=== PATIENT | female | born 1985 | race Caucasian/White ===

== ENCOUNTER 2022-05-03 15:36 | Emergency (ER) | payer BC ==
[~2022-05-03] VITALS: Ht 170.2 cm; Wt 74.8 kg
[2022-05-03 16:01] VITALS: BP_SYST 138
[2022-05-03] MEDS: IBUPROFEN 600 MG TABLET PO ONE (20:48)
[2022-05-03 21:14] VITALS: BP_SYST 138
== END 2022-05-03 21:14 | disposition home or self-care (01) ==
LOC: SED 15:36
DX: R51.9 Headache, unspecified (principal); R07.89 Other chest pain; M54.50 Low back pain, unspecified; Z20.822 Contact with and (suspected) exposure to COVID-19
CPT/HCPCS: 36415; 71045; 93005; 99285

== ENCOUNTER 2023-10-04 11:40 | Emergency (ER) | payer BC, MEDICAID ==
[~2023-10-04] VITALS: Ht 160 cm; Wt 61.2 kg
[2023-10-04 11:44] VITALS: BP_SYST 120; PULSE 108; RESP 18; TEMP 98.3; O2SAT 98
[2023-10-04] MEDS ORDERED: IPRATROPIUM/ALBUTEROL SULFATE 3 ML AMPUL.NEB (DUONEB) INH ONE (12:00)
[2023-10-04 12:17] LABS: BASOPHILS % (AUTO) 0.4 % (0.0-2.0); EOSINOPHILS % (AUTO) 0.5 % (0.0-4.0); HEMATOCRIT 35.2 % (36-48); HEMOGLOBIN 11.8 g/dL (12.0-16.0); LYMPHOCYTES % (AUTO) 20.2 % (20.5-51.5); MEAN CORPUSCULAR HEMOGLOBIN 28 pg (27-31); MEAN CORPUSCULAR HGB CONC 34 % (32-36); MEAN CORPUSCULAR VOLUME 83 fL (79.0-98.0); MONOCYTES # (AUTO) 0.4 K/uL (0.0-1.0); MONOCYTES % (AUTO) 7.9 % (1.7-9.3); NEUTROPHILS # (AUTO) 3.6 K/uL (1.8-7.7); PLATELET COUNT (AUTO) 252 K/uL (130-430); RED BLOOD CELL COUNT(AUTO) 4.24 MIL/uL (4.2-6.2); RED CELL DISTRIBUTION WIDTH 14.8 % (9.0-15.0); WHITE BLOOD COUNT (AUTO) 5.1 K/uL (4.8-10.8)
[2023-10-04 12:27] LABS: CALCIUM 8.3 mg/dL (8.4-11.0); CREATININE 0.73 mg/dL (0.55-1.30); POTASSIUM 3.8 mmol/L (3.5-5.1)
[2023-10-04] MEDS ORDERED: AUG875 PO (13:10)
[2023-10-04] MEDS ORDERED: METH-776 PO (13:10)
[2023-10-04] MEDS ORDERED: ALBMDI INH (13:10)
[2023-10-04 13:31] VITALS: BP_SYST 120; PULSE 108; RESP 18; TEMP 98.3; O2SAT 98
== END 2023-10-04 13:34 | disposition home or self-care (01) ==
LOC: SED 11:40
DX: J45.909 Unspecified asthma, uncomplicated (principal)
CPT/HCPCS: 36415; 71046; 80048; 85025; 85379; 99284